=== PATIENT | female | born 1990 | race Caucasian/White ===

== ENCOUNTER → 2018-03-23 08:24 | Outpatient (CLI) | payer OTHER, SELFPAY ==
[2018-03-23 09:58] LABS: Appearance Urine UA CLEAR; Bilirubin Urine UA NEGATIVE (NEGATIVE); Color Urine UA YELLOW; Glucose Urine UA NEGATIVE (Normal); Ketones Urine UA NEGATIVE (NEGATIVE); Leukocyte Esterase Urine UA NEGATIVE (NEGATIVE); Nitrite Urine UA Negative (Negative); Occult Blood Urine UA 1+ (Negative); Protein Urine UA NEGATIVE (Negative); Specific Gravity Urine UA 1.015 (1.000-1.035); Urobilinogen Urine UA 0.2 E.U./dL (0.2); pH Urine UA 6.5 (4.5-8.0)
[2018-03-23 10:11] LABS: Pregnancy Test Urine Negative (Negative)
== END ==
PROVIDERS: PCP Family Medicine; Visit Provider Nurse Practitioner Family
DX: R10.2 Pelvic and perineal pain (principal)
CPT/HCPCS: 81003; 81025

== ENCOUNTER → 2018-04-02 07:00 | Outpatient (CLI) | payer OTHER, SELFPAY ==
--- NOTE | 2018-04-02 07:01 | DI.US.S_ITS ---
PROCEDURE: US PELVIC COMPLETE INDICATIONS: PAIN X 6 WEEKS TECHNIQUE: Real-time scanning was performed of the pelvic organs, with image documentation. Additional endovaginal scanning was necessary due to incomplete visualization of the adnexal and endometrial structures by transabdominal scanning. COMPARISON: None. FINDINGS: Transabdominal scanning: Limited scanning through the kidneys shows no hydronephrosis. No pathologic free abdominal or pelvic fluid. Endovaginal scanning: Uterus: Uterus is normal in size at 6.6 x 3.5 x 4.6 cm. The endometrium is not well-seen. An IUD is seen at its expected location. There is a minimal amount of fluid surrounding the IUD. Ovaries: The right ovary measures 3.8 x 2.2 x 3.8 cm. The left ovary measures 3.4 x 1.1 x 1.5 cm. there is a complex lesion seen involving the right ovary that measures up to 2.4 cm. The ovaries otherwise have a normal sonographic appearance, with note made of a 2.8 cm simple cyst involving the right ovary. No adnexal masses are seen. IMPRESSION: Likely resolving right ovarian hemorrhagic cyst. At clinical discretion, a followup pelvic ultrasound is suggested in 6 weeks to assure resolution/ improvement. IUD seen along the endometrial stripe, with a small amount of fluid surrounding the IUD. Dictated by: Ziggy Mathews M.D. on 04/02/2018 at 8:18 Approved by: Ziggy Mathews M.D. on 04/02/2018 at 8:26
== END ==
PROVIDERS: PCP Family Medicine; Visit Provider Nurse Practitioner Family
DX: N83.291 Other ovarian cyst, right side (principal); R10.2 Pelvic and perineal pain
CPT/HCPCS: 76830; 76856

== ENCOUNTER → 2018-05-23 08:09 | Outpatient (CLI) | payer OTHER, SELFPAY ==
--- NOTE | 2018-05-23 08:11 | DI.US.S_ITS ---
PROCEDURE: US PELVIC COMPLETE INDICATIONS: follow up - likely resolving R ovarian hemmorrhagic cyst TECHNIQUE: Real-time scanning was performed of the pelvic organs, with image documentation. Additional endovaginal scanning was necessary due to incomplete visualization of the adnexal and endometrial structures by transabdominal scanning. COMPARISON: [facility], , US PELVIC COMPLETE, 04/02/2018, 7:30. FINDINGS: Transabdominal scanning: Limited scanning through the kidneys shows no hydronephrosis. No pathologic free abdominal or pelvic fluid. Endovaginal scanning: Uterus: Uterus is normal in size at the 3.5 x 5.4 x 6.8 cm. The endometrium normal in combined thickness, but shadowing from a centrally positioned IUD obscures clear visualization of portions of the endometrial canal. Ovaries: The right ovary measures 2.2 x 3.3 x 3.2 cm and contains a simple appearing 1.5 cm cyst. Previously present complex cyst has resolved. The left ovary contains a 3.0 cm simple cyst and overall measures 3.0 x 2.0 x 2.8 cm. IMPRESSION: Resolution of the previously present complex right ovarian cyst. Simple 3 cm cyst left ovary. Retroverted uterus, without fibroid. Centrally positioned IUD noted, which shadows and produces mild degradation of image quality through the endometrial canal. The no endometrial mass suspected. Dictated by: Ramon Singh M.D. on 05/23/2018 at 9:52 Approved by: Ramon Singh M.D. on 05/23/2018 at 9:55
== END ==
PROVIDERS: PCP Family Medicine; Visit Provider Nurse Practitioner Family
DX: R10.2 Pelvic and perineal pain (principal); N83.292 Other ovarian cyst, left side; N83.291 Other ovarian cyst, right side; Z97.5 Presence of (intrauterine) contraceptive device
CPT/HCPCS: 76856